=== PATIENT | male | born 1985 | race Caucasian/White ===

== ENCOUNTER 2021-01-20 11:17 | Emergency (ER) | payer OTHER ==
[2021-01-20] MEDS ORDERED: IBUPROFEN 400 MG TAB ONE (11:47)
--- NOTE | 2021-01-20 12:56 | EDPHYS ---
Physician Documentation [facility] Name: Rich Becker Age: 35 yrs Sex: Male : 1985 Arrival Date: 01/20/2021 Time: 11:18 Bed 26 Private MD: ED Physician To Trinh HPI: 01/20 12:14 This 35 yrs old Male presents to ER via Law [employer] with complaints of Hand Injury. kb 12:14 The patient or guardian reports decreased range of motion, injury, pain, tenderness. kb The complaints affect the right hand diffusely. Context: The problem was sustained at a custodial, resulted from a direct blow, by a solid object. Onset: The symptoms/episode began/occurred this morning. Modifying factors: The symptoms are alleviated by nothing, the symptoms are aggravated by movement. Associated signs and symptoms: The patient has no apparent associated signs or symptoms. Severity of symptoms: At their worst the symptoms were moderate, in the emergency department the symptoms are unchanged. The patient has not experienced similar symptoms in the past. The patient has not recently seen a physician. Pt reports he was woken up abruptly and his hand hit the wall. Historical: - Allergies: 11:23 tramadol; aa5 - Home Meds: 11:23 None [Active]; aa5 - PMHx: 11:23 None; aa5 - PSHx: 11:23 left ankle; aa5 - Immunization history:: Adult Immunizations unknown. - Social history:: Smoking status: Patient denies any tobacco usage or history of. ROS: 12:12 Constitutional: Negative for fever, chills, and weight loss, Skin: Negative for injury, kb rash, and discoloration, Neuro: Negative for headache, weakness, numbness, tingling, and seizure. 12:12 MS/extremity: Positive for injury or acute deformity, decreased range of motion, pain, tenderness, of the dorsum of right hand. Exam: 12:13 Constitutional: This is a well developed, well nourished patient who is awake, alert, kb and in no acute distress. Head/Face: Normocephalic, atraumatic. Respiratory: Respirations even and unlabored. No increased work of breathing, no retractions or nasal flaring. Skin: Warm, dry with normal turgor. Normal color. Neuro: Awake and alert, GCS 15, oriented to person, place, time, and situation. Moves all extremities. Normal gait. 12:13 Musculoskeletal/extremity: Extremities: grossly normal except: noted in the dorsum of right hand: decreased ROM, pain, swelling, tenderness, ROM: limited active range of motion due to pain, in the right hand, Circulation is intact in all extremities. Sensation intact. Vital Signs: 11:18 BP 136 / 77; Pulse 81; Resp 16 S; Temp 98.0(O); Pulse Ox 100% on R/A; Weight 108.86 kg aa5 (R); Height 6 ft. 1 in. (185.42 cm) (R); Pain 7/10; 11:18 Body Mass Index 31.66 (108.86 kg, 185.42 cm) aa5 MDM: 11:19 Patient medically screened. kb 12:05 Data reviewed: vital signs, nurses notes. Data interpreted: Pulse oximetry: on room air kb is 100 %. Interpretation: normal. Counseling: I had a detailed discussion with the patient and/or guardian regarding: the historical points, exam findings, and any diagnostic results supporting the discharge/admit diagnosis, radiology results, the need for outpatient follow up, a orthopedic surgeon, to return to the emergency department if symptoms worsen or persist or if there are any questions or concerns that arise at home. 01/20 11:20 Order name: Hand Right 3 View XRAY em1 Administered Medications: 11:42 Drug: Ibuprofen 800 mg Route: PO; aa5 12:43 Follow up: Response: No adverse reaction aa5 Disposition: 01/21 07:21 Co-signature as Attending Physician, To Trinh MD I agree with the assessment and kdr plan of care. Disposition: 01/20/21 12:18 Discharged to Home. Impression: Pain in right hand. - Condition is Stable. - Discharge Instructions: Musculoskeletal Pain, Hand Contusion, [id number]. - Medication Reconciliation Form, Thank You Letter, Antibiotic Education, Prescription Opioid Use form. - Follow up: Emergency Department; When: As needed; Reason: Worsening of condition. Follow up: Private Physician; When: 2 - 3 days; Reason: Recheck today's complaints, Continuance of care, Re-evaluation by your physician. Signatures: Dispatcher [employer] EDLibby Maier, DOWNSTAIRS MAID-C DOWNSTAIRS MAID-CkTo Golden MD MD [facility] Eva Kaufman, RN RN aa5 Corrections: (The following items were deleted from the chart) 01/20 13:19 12:18 01/20/2021 12:18 Discharged to Home. Impression: Pain in right hand. Condition is aa5 Stable. Forms are Medication Reconciliation Form, Thank You Letter, Antibiotic Education, Prescription Opioid Use. Follow up: Emergency Department; When: As needed; Reason: Worsening of condition. Follow up: Private Physician; When: 2 - 3 days; Reason: Recheck today's complaints, Continuance of care, Re-evaluation by your physician. kb
--- NOTE | 2021-01-20 12:56 | ER ---
Nurse's Notes [facility] Name: Rich Becker Age: 35 yrs Sex: Male : 1985 Arrival Date: 01/20/2021 Time: 11:18 Bed 26 Private MD: Diagnosis: Pain in right hand Presentation: 01/20 11:18 Chief complaint: Patient states: "I was awaken abruptly and I hit my hand on the wall". aa5 Pt c/o pain to right hand. 11:18 Coronavirus screen: At this time, the client does not indicate any symptoms associated aa5 with coronavirus-19. Ebola Screen: Patient negative for fever greater than or equal to 101.5 degrees Fahrenheit, and additional compatible Ebola Virus Disease symptoms. Initial Sepsis Screen: Does the patient meet any 2 criteria? No. Patient's initial sepsis screen is negative. Does the patient have a suspected source of infection? No. Patient's initial sepsis screen is negative. Risk Assessment: Do you want to hurt yourself or someone else? Patient reports no desire to harm self or others. Onset of symptoms was January 20, 2021. 11:18 Method Of Arrival: [employer] Enforcement: [place] [employer] aa5 11:18 Acuity: NAT 4 aa5 Historical: - Allergies: 11:23 tramadol; aa5 - Home Meds: 11:23 None [Active]; aa5 - PMHx: 11:23 None; aa5 - PSHx: 11:23 left ankle; aa5 - Immunization history:: Adult Immunizations unknown. - Social history:: Smoking status: Patient denies any tobacco usage or history of. Screenin:18 Abuse screen: Denies threats or abuse. Nutritional screening: No deficits noted. aa5 Tuberculosis screening: No symptoms or risk factors identified. Fall Risk None identified. Assessment: 11:18 General: Appears comfortable, Behavior is calm, cooperative. Pain: Complains of pain in aa5 dorsum of right hand. Neuro: Level of Consciousness is awake, alert, obeys commands, Oriented to person, place, time, situation. Cardiovascular: Capillary refill < 3 seconds is brisk in bilateral fingers. Respiratory: Airway is patent Respiratory effort is even, unlabored, Respiratory pattern is regular, symmetrical. GI: No signs and/or symptoms were reported involving the gastrointestinal system. : No signs and/or symptoms were reported regarding the genitourinary system. EENT: No signs and/or symptoms were reported regarding the EENT system. Derm: Skin is pink, warm \\T\\ dry. Musculoskeletal: Range of motion: intact in all extremities. 11:42 Reassessment: Patient is alert, oriented x 3, equal unlabored respirations, skin aa5 warm/dry/pink. awaiting x-ray. 13:15 Reassessment: Patient is alert, oriented x 3, equal unlabored respirations, skin aa5 warm/dry/pink. 13:18 Reassessment: d/c instructions given. gait even and steady. patient left with zb Transportation guards back to [facility]. no questions at this time. Vital Signs: 11:18 BP 136 / 77; Pulse 81; Resp 16 S; Temp 98.0(O); Pulse Ox 100% on R/A; Weight 108.86 kg aa5 (R); Height 6 ft. 1 in. (185.42 cm) (R); Pain 7/10; 11:18 Body Mass Index 31.66 (108.86 kg, 185.42 cm) aa5 ED Course: 11:18 Patient arrived in ED. am2 11:18 Eva Kaufman, RN is Primary Nurse. aa5 11:18 Arm band placed on Patient placed in an exam room, on a stretcher. aa5 11:19 Libby Mejia [facility]-C [facility]. kb 11:19 To Trinh MD is Attending Physician. kb 11:22 Triage completed. aa5 11:56 Hand Right 3 View XRAY In Process Unspecified. EDMS 12:43 No provider procedures requiring assistance completed. Patient did not have IV access aa5 during this emergency room visit. 13:18 Patient has correct armband on for positive identification. Adult w/ patient. zb Administered Medications: 11:42 Drug: Ibuprofen 800 mg Route: PO; aa5 12:43 Follow up: Response: No adverse reaction aa5 Outcome: 12:18 Discharge ordered by . kb 13:15 Discharged to Law Enforcement aa5 13:15 Condition: stable 13:15 Discharge instructions given to patient, Instructed on discharge instructions, follow up and referral plans. Demonstrated understanding of instructions, follow-up care. 13:19 Patient left the ED. aa5 Signatures: Dispatcher [employer] Libby Miranda, SPINAL SURGEON-C SPINAL SURGEON-Eva Love, RN RN aa5 Carolyn Paris Zipporah, RN RN zb
[2021-01-20 14:21] VITALS: BP 136/77; TEMP 98; O2SAT 100
--- NOTE | 2021-01-20 19:25 | RAD REPORT ---
EXAM DESCRIPTION: RAD - Hand Right 3 View - 01/20/2021 11:54 am CLINICAL HISTORY: PAINblunt force trauma COMPARISON: No comparisons FINDINGS: No fracture is identified. There is no dislocation or periosteal reaction noted. No forei gn body in the soft tissues. Soft tissue swelling present over the dorsum of the right hand MCP level . IMPRESSION: No fracture. No acute bone or joint finding. Soft tissue swelling.
== END 2021-01-20 13:19 | disposition home or self-care (01) ==
LOC: ER 11:17
DX: M79.641 Pain in right hand (principal); Z88.5 Allergy status to narcotic agent
CPT/HCPCS: 99283